=== PATIENT | male | born 1970 | race Caucasian/White ===

== ENCOUNTER 2018-11-12 10:39 | Outpatient (CLI) | payer MEDICAID, SELFPAY ==
[2018-11-12 12:55] LABS: Anion Gap 12.5 mmol/L (3-11); BUN 43 mg/dL (7-18); CO2 19.5 mmol/L (21.0-32.0); CREATININE 2.53 mg/dL (0.70-1.30); Chloride 105 mmol/L (98-107); Estimated GFR 27.44 (mL/min/1.73m2); Sodium 137 mmol/L (136-145); TSH 31.19 uIU/mL (0.358-3.74)
== END 2018-11-12 10:59 ==
PROVIDERS: PCP General Practice; Visit Provider General Practice
DX: I50.9 Heart failure, unspecified (principal); I10 Essential (primary) hypertension; E03.9 Hypothyroidism, unspecified
CPT/HCPCS: 36415; 80051; 84520; 82565; 84443

== ENCOUNTER 2019-05-04 12:20 | Outpatient (CLI) | payer MEDICAID, SELFPAY ==
[2019-05-04 12:57] LABS: Abs Immature Grans 0.07 k/cumm (0.0-0.09); Absolute Basophil Count 0.03 k/cumm (0.0-0.2); Absolute Eosinophil Count 0.41 k/cumm (0.0-0.7); Absolute Lymphocyte Count 1.96 k/cumm (1.2-3.4); Absolute Monocyte Count 0.34 k/cumm (0.11-0.7); Absolute Neutrophil Count 7.74 k/cumm (1.2-6.7); Basophils % 0.3; Eosinophils % 3.9; HCT 39.6 % (40.0-50.0); HGB 12.8 g/dL (13.5-17.5); Immature Grans % 0.7; Lymphocytes % 18.6; Mean Corp. HGB Concentration 32.3 g/dL (32.0-36.0); Mean Corpuscular Hemoglobin 28.1 pg (27.0-33.0); Mean Corpuscular Volume 86.8 fL (80-95); Mean Platelet Volume 9.1 fL (8.0-11.0); Monocytes % 3.2; Neutrophils % 73.3; Platelet Count 356 x1000/uL (130-400); RBC 4.56 m/cumm (4.50-6.00); RBC Distribution Width 14.9 % (11.8-14.1); White Blood Cell Count 10.55 k/cumm (4.4-10.8)
[2019-05-04 13:10] LABS: VALPROIC ACID < 3.0 ug/mL (50-100)
[2019-05-04 13:40] LABS: ALT 15 U/L (16-63); AST 8 U/L (15-37); Albumin 3.5 g/dL (3.4-5.0); Alkaline Phosphatase 72 U/L (46-116); Anion Gap 12.4 mmol/L (3-11); BUN 13 mg/dL (7-18); Bilirubin, Total 0.2 mg/dL (0.2-1.0); CO2 21.6 mmol/L (21.0-32.0); CREATININE 1.34 mg/dL (0.70-1.30); Calcium 8.9 mg/dL (8.5-10.1); Chloride 103 mmol/L (98-107); Estimated GFR 57.14 (mL/min/1.73m2); Glucose 106 mg/dL (70-100); Potassium 3.9 mmol/L (3.5-5.1); Sodium 137 mmol/L (136-145); Total Protein 7.8 g/dL (6.4-8.2)
== END 2019-05-04 12:40 ==
PROVIDERS: PCP General Practice; Visit Provider Nurse Practitioner Psychiatric/Mental Health
DX: F31.2 Bipolar disorder, current episode manic severe with psychotic features (principal); Z51.81 Encounter for therapeutic drug level monitoring; Z79.899 Other long term (current) drug therapy
CPT/HCPCS: 36415; 80053; 80164; 85025

== ENCOUNTER 2020-04-30 02:28 | Outpatient (CLI) | payer MEDICAID, SELFPAY ==
[2020-04-30 14:53] LABS: ALT 14 U/L (16-63); AST 11 U/L (15-37); Albumin 3.8 g/dL (3.4-5.0); Alkaline Phosphatase 65 U/L (46-116); Anion Gap 10.4 mmol/L (3-11); BUN 20 mg/dL (7-18); Bilirubin, Total 0.3 mg/dL (0.2-1.0); CO2 21.6 mmol/L (21.0-32.0); Calcium 9.4 mg/dL (8.5-10.1); Chloride 103 mmol/L (98-107); Cholesterol 352 mg/dL (<200); Glucose 118 mg/dL (74-106); HDL Cholesterol 25 mg/dL (40-60); Potassium 4.4 mmol/L (3.5-5.1); Sodium 135 mmol/L (136-145); Total Protein 8.1 g/dL (6.4-8.2); Triglyceride 771 mg/dL (<150)
[2020-04-30 15:04] LABS: LDL CHOLESTEROL 166 mg/dL (<100)
[2020-04-30 15:11] LABS: TSH (W/Ref FT4) 28.28 uIU/mL (0.36-3.74)
[2020-05-01 10:10] LABS: HIV-1/2 Ag & Ab Screen Negative (Negative)
[2020-05-01 10:25] LABS: HBs Antibody, Qual Negative (See Note); HBs Antibody, Quant <3.1 mIU/mL (See Note); Hepatitis B Core Antibody Negative (Negative); Hepatitis B surface Ag Negative (Negative); Hepatitis C Ab w Rflx HCV PCR Negative (Negative)
[2020-05-01 11:07] LABS: Syphilis Serology (RPR) Negative (Negative)
[2020-05-01 15:39] LABS: Chlamydia Result Negative (Negative); GC Result Negative (Negative)
== END 2020-04-30 02:48 ==
PROVIDERS: PCP Family Medicine; Visit Provider Family Medicine
DX: E03.9 Hypothyroidism, unspecified (principal); Z11.3 Encounter for screening for infections with a predominantly sexual mode of transmission; E78.5 Hyperlipidemia, unspecified; N18.4 Chronic kidney disease, stage 4 (severe)
CPT/HCPCS: 36415; 80053; 80061; 83721; 86704; 86706; 86803; 87340; 87389; 87491; 87591; 84439; 84443; 86592

== ENCOUNTER 2021-02-01 11:09 | Outpatient (REF) | payer MEDICAID, SELFPAY | END 2021-02-01 11:10 | disposition home or self-care (01) | LOC: LBN 11:09 | PROVIDERS: PCP Family Medicine; Visit Provider Family Medicine | DX: N39.0 Urinary tract infection, site not specified (principal) | CPT/HCPCS: 87086 ==

== ENCOUNTER 2021-08-08 12:45 | Outpatient (CLI) | payer MEDICAID, SELFPAY ==
--- NOTE | 2021-08-08 11:30 | DI.US_ITS ---
Exam(s) US RENAL EXAM: US RENAL CLINICAL HISTORY: elevated PVR ? hydro N40.1 PROSTATIC HYPERPLASIA R33.8 RETENTION OF URINE TECHNIQUE: Ultrasound of both kidneys performed using standard protocol. COMPARISON: US Cardiac from 02/08/2018 FINDINGS: RIGHT KIDNEY: Measures 13.3 cm in length. No cysts evident. Normal cortical thickness and corticomedullary differen tiation .No solid masses No intrarenal calculi nor hydronephrosis. LEFT KIDNEY: Measures 13.9 cm in length. There is a 0.4 x 2.2 cm cyst in the superior pole. Normal cortical thic kness and corticomedullary differentiaion. No solids masses. No intrarenal calculi. Very mild hydro nephrosis. URINARY BLADDER: Prevoid volume is 373 cc Postvoid volume is not recorded will. Patient was apparently not able to void. No evidence of bladder mass nor obvious diverticuli. Ureterovesical jets: Both not identified. IMPRESSION: 1. There appears to be an element of urinary retention as the patient was apparently not able to voi d. 2. Very mild dilatation left kidney collecting system. No obvious calculi evident. 2.4 cm benign-appearing cyst in the left kidney. No solid masses in either kidney. No intrarenal ca lculi detected. DATA REPOSITORY:
[2021-08-08 12:02] LABS: BUN 12 mg/dL (7-18)
[2021-08-08 12:08] LABS: VALPROIC ACID 86.6 ug/mL
[2021-08-08 12:28] LABS: ALT 19 U/L (16-63); AST 7 U/L (15-37); Albumin 3.3 g/dL (3.4-5.0); Alkaline Phosphatase 85 U/L (46-116); Anion Gap 11.4 mmol/L (3-11); BUN 12 mg/dL (7-18); Bilirubin, Total 0.2 mg/dL (0.2-1.0); CO2 24.6 mmol/L (21.0-32.0); Calcium 9.1 mg/dL (8.5-10.1); Calculated LDL 107 mg/dL (<100); Chloride 101 mmol/L (98-107); Cholesterol 189 mg/dL (<200); Glucose 152 mg/dL (74-106); HDL Cholesterol 33 mg/dL (40-60); Potassium 4.1 mmol/L (3.5-5.1); Sodium 137 mmol/L (136-145); TSH (W/Ref FT4) 5.04 uIU/mL (0.36-3.74); Total Protein 7.6 g/dL (6.4-8.2); Triglyceride 248 mg/dL (<150)
[2021-08-08 12:55] LABS: FREE T4 0.94 ng/dL (0.76-1.46)
[2021-08-08 18:40] LABS: PSA, Screening <0.1 ng/mL (0.0-2.5)
== END 2021-08-08 13:05 ==
PROVIDERS: PCP Family Medicine; Visit Provider Nurse Practitioner Gerontology
DX: N40.1 Benign prostatic hyperplasia with lower urinary tract symptoms (principal); R33.8 Other retention of urine; N28.1 Cyst of kidney, acquired
CPT/HCPCS: 76770; 80053; 80061; 84153; 84520; 80164; 82565; 84439; 84443

== ENCOUNTER 2022-04-10 06:58 | Day surgery (SDC) | payer MEDICAID, SELFPAY ==
--- NOTE | 2022-04-10 06:58 | ANES.PREOP_ITS ---
General Info Date of Service Date Performed: 04/10/22 Height: 5 ft 10 in Weight: 117.197 kg Body Mass Index (BMI): 37.0 Surgical Procedure: Operation Date: 04/10/22 08:35 Proposed Procedure Side Surgeon jayro Acevedo MD Meds Allergies and Home Medications Allergies Allergy/AdvReac Type Severity Reaction Status Date / Time No Known Allergies Allergy Verified 04/10/22 07:48 Home Medication Medication Instructions Recorded sumatriptan succinate 50 mg tablet See Rx Instructions PO .COMPLEX 11/06/20 #14 tabs diaper,brief,adult,disposable #10 ea 03/22/21 (Briefs, Adult-Extra Large) levothyroxine 200 mcg tablet 200 mcg PO DAILY@0730 #28 tabs 04/15/21 lisinopril 5 mg tablet 5 mg PO DAILY #28 tabs 04/15/21 bupropion HCl 300 mg 24 hr tablet, 300 mg PO QAM #60 tabs 09/02/21 extended release divalproex 500 mg tablet,extended 500 mg PO .COMPLEX #300 tabs 09/02/21 release 24 hr quetiapine 100 mg tablet (Seroquel) 100 mg PO HS #60 tabs 09/02/21 metoprolol succinate 50 mg 50 mg PO DAILY #90 tabs 09/03/21 tablet,extended release 24 hr sertraline 100 mg tablet 200 mg PO DAILY #90 tabs 12/27/21 atorvastatin 40 mg tablet 40 mg PO QHS #90 tabs 01/28/22 blood sugar diagnostic (Blood #100 ea 01/28/22 Glucose Test strips) blood-glucose meter #1 ea 01/28/22 lancets #100 ea 01/28/22 gemfibrozil 600 mg tablet (Lopid) 600 mg PO DAILY #30 tabs 02/24/22 bisacodyl 5 mg tablet,delayed 5 mg PO ONCE #4 tabs 03/13/22 release (Dulcolax (bisacodyl)) risperidone 1 mg tablet See Rx Instructions PO .COMPLEX 03/13/22 #150 tabs doxycycline hyclate 100 mg tablet 1 tab PO BID 04/10/22 prednisolone acetate 1 % eye 1 drp ophthalmic (eye) BID 04/10/22 drops,suspension Current Visit Medications: Current Medications Generic Name Dose Route Start Last Admin Trade Name Freq PRN Reason Stop Dose Admin Ringer's Solution 1,000 mls @ 80 mls/hr 04/10/22 06:00 IV 05/09/22 23:59 [facility] IV Miscellaneous Supplies 1 each 04/10/22 06:00 Iv Access IV 05/09/22 23:59 DIRECTED JUSTINE Sodium Chloride 0 ml 04/10/22 06:00 Normal Saline Flush 10 Ml Syr IV 05/09/22 23:59 PRN PRN Sodium Chloride 0 ml 04/10/22 06:00 Normal Saline 10 Ml Vial IJ 05/09/22 23:59 DIRECTED PRN Sterile Water 0 ml 04/10/22 06:00 Water,Injection,Sterile 10 Ml Vial IJ 05/09/22 23:59 DIRECTED PRN PFSH Active Problems Active Problems: Problem Status Onset Code Suicidal ideation R45.851 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, 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, I43 Obstructive sleep apnea ~04/2011 G47.33 Bipolar 1 disorder F31.9 Post traumatic stress disorder (PTSD) F43.10 CHF (congestive heart failure) I50.9 CKD (chronic kidney disease) N18.9 Diabetes mellitus, type II E11.9 Positive colorectal cancer screening using DNA-based stool test R19.5 Medical History Medical History Anemia Anxiety Basal cell carcinoma right upper medial cheek Cardiomyopathy Depression Discharge planning issues Folate deficiency Gout History of hand fracture right Hx of non-ST elevation myocardial infarction (NSTEMI) 11/2014 Hyperlipidemia Hypertension Hypertriglyceridemia Hypothyroidism Iron deficiency Migraine with aura Manuel syndrome Pt. denies Onychogryposis Osteomyelitis of toe amputated right 2nd toe thru pox phalanx 02/03/18 Urethral stricture Urinary incontinence Surgical History Surgical History Amputated toe of right foot (02/03/18) osteomyelitis, Dr. Pena S/P Mohs surgery for basal cell carcinoma (09/18/20) Two stages w/ full thickness Graft and Flap Tobacco Smoking/Tobacco Use Status: Never Smokeless tobacco user: chewing tobacco Alcohol Alcohol Intake: former Substance Use Substance use: Rarely Substance use type: marijuana Vital Signs and Lab Results Lab Results Blood Type / Crossmatch: No Data to Display Complete Blood Count: No Data to Display Complete Metabolic Panel: No Data to Display Liver Function Panel: No Data to Display Coagulation Panel: No Data to Display Cardiac Panel: No Data to Display Arterial Blood Gas: No Data to Display Venous Blood Gas: No Data to Display Pancreas Panel: No Data to Display Thyroid Panel: No Data to Display Infectious Disease: No Data to Display Blood Cultures: No Data to Display Toxicology Panel: No Data to Display Anesthesia Assessment and Plan Anesthesia History Personal History: No History of Anesthesia Complications Family History: No Family History of Anesthesia Complications Exercise Tolerance Exercise Tolerance: Metabolic Equivalents>4 Pertinent Negatives Pertinent Negatives: No Symptoms of GERD, No Major Pulmonary Symptoms or Complaints and No History of CVA/TIA Cardiac & Pulmonary Exam Cardiac Exam: Normal S1/S2 Heart Sounds Pulmonary Exam: Clear Bilateral Breath Sounds Implantable Cardiac Device Does patient have a Pacemaker or an ICD?: No Airway Exam Known Difficult Airway: No Mallampati Class: 3 Mouth Opening: Normal (> 3cm) Thyromental Distance: Greater than 3 cm Neck Range of Motion: Limited ROM Neck Circumference: Thick (Midline goiter. easily palpable, mobile. ) Teeth Condition: Generalized Poor Dentition and Loose or Chipped ASA Classification ASA Score: ASA 3 Emergency Case?: No NPO Status NPO Status: NPO Clears >2 hours, Solids >8 hours Anesthesia Plan Resuscitation Status: Full Code Anesthesia Technique: General Anesthesia Airway Planned: Natural Airway Monitors Used: Standard Monitors Preoperative Comments:: Cardiomyopathy likely induced due to severe hypothyroidism per Dr. Chandra note. Most recent TSH/T4 normal high. Lowest EF 27% most recent 45%. Recent DM diagnosis, HGA1c 6.1. Significantly sized goiter midline in airway. OR 1 available we will be proceeding there.
[2022-04-10 07:42] VITALS: BP 140/102; PULSE 78; RESP 16; TEMP 36.6; O2SAT 94
[2022-04-10] MEDS: Lactated Ringers 1,000 ML 80 ML IV (08:00)
--- NOTE | 2022-04-10 08:31 | W.PM.DSUDISC ---
Discharge Plan Disposition Patient Disposition: HOME Condition: Good Discharge Details Reason For Visit: diagnostic colonoscopy Attending Provider: Ross Acevedo Primary Care Provider: Gordon Landis Home Meds and New Rx's Prescriptions: Continued sumatriptan succinate 50 mg tablet See Rx Instructions PO .COMPLEX Qty: 14 6RF Rx Instructions: take 1 tab at onset of headache; if no relief may repeat 1 tab after at least 2 hrs; max = 4 tabs/24 hr PO (DME) blood-glucose meter Misc See Rx Instructions .ROUTE .MEDSUPPLY Qty: 1 0RF Rx Instructions: As directed to check blood glucose. No insulin. Dispense covered brand. (DME) Blood Glucose Test Strip See Rx Instructions .ROUTE .MEDSUPPLY Qty: 100 3RF Rx Instructions: As directed to check blood glucose daily. No insulin. Dispense covered brand. (DME) lancets Misc See Rx Instructions .ROUTE .MEDSUPPLY Qty: 100 3RF Rx Instructions: As directed to check blood glucose daily. No insulin. Dispense covered brand. atorvastatin 40 mg tablet 40 mg PO QHS Qty: 90 3RF flu vacc [id number] 6mos up(PF) 60 mcg (15 mcg x 4)/0.5 mL syringe 0.5 ml IM ONCE Qty: 0.5 0RF bisacodyl [Dulcolax (bisacodyl)] 5 mg tablet,delayed release (DR/EC) 5 mg PO ONCE Qty: 4 0RF Rx Instructions: Take according to provider's instructions for colonoscopy prep. (DME) Briefs, Adult-Extra Large Misc See Rx Instructions .ROUTE .MEDSUPPLY Qty: 10 Rx Instructions: size 3X night time use levothyroxine 200 mcg tablet 200 mcg PO DAILY@0730 Qty: 28 12RF lisinopril 5 mg tablet 5 mg PO DAILY Qty: 28 12RF bupropion HCl 300 mg tablet extended release 24 hr 300 mg PO QAM Qty: 60 3RF Rx Instructions: per rx label [facility] 10/24/19 [facility] divalproex 500 mg tablet extended release 24 hr 500 mg PO .COMPLEX Qty: 300 3RF Rx Instructions: 2 (1000mg) tablets in the morning and 3 (1500mg) tablets at bedtime. quetiapine [Seroquel] 100 mg tablet 100 mg PO HS Qty: 60 3RF metoprolol succinate 50 mg tablet extended release 24 hr 50 mg PO DAILY Qty: 90 3RF sertraline 100 mg tablet 200 mg PO DAILY Qty: 90 3RF Rx Instructions: 10/24/19 [facility] [place] gemfibrozil [Lopid] 600 mg tablet 600 mg PO DAILY Qty: 30 11RF risperidone 1 mg tablet See Rx Instructions PO .COMPLEX Qty: 150 3RF Rx Instructions: 1/2 tab (0.5 mg) am and 2 tab (2 mg ) pm PO 10/24/19 [facility] prednisolone acetate 1 % drops,suspension 1 drp ophthalmic (eye) BID Label Comments: Instill 1 drop into both eyes twice a day doxycycline hyclate 100 mg tablet 1 tab PO BID Label Comments: Take 1 tablet by mouth twice a day Discontinued polyethylene glycol 3350 17 gram/dose powder 17 g PO ONCE Qty: 238 0RF Rx Instructions: To be taken as directed by prescriber's office for colonoscopy prep. Discharge Instructions Instructions: Colorectal Polyps (DC), Colonoscopy (DC) Additional Instructions: 1. If tolerated, consume a soft, low fiber diet for 1-2 days. [address] Do not drive, drink alcohol, operate machinery, make critical decisions, or do activities that require coordination or balance for 24 hours. 3. Because air was put into your colon during the procedure, expelling air from your rectum (passing gas or farting) is normal. 4. You may not have a bowel movement for 1-3 days because of the colonoscopy prep. This is normal. 5. Go directly to the emergency room if you notice any of the following: Develop chills (warm to touch), or if you have a thermometer and your temperature is above 101 Difficulty breathing or difficultly swallowing Persistent vomiting Severe abdominal pain, other than gas cramps Severe chest pain Black, tarry stools Any bleeding ? exceeding one tablespoon 6. Call your physician if the site where your intravenous was started becomes red, swollen, painful, and warm to touch. 7. Your physician has reviewed your pre-procedure medications. Please continue to take those medications as previously ordered. You will be given specific information/education regarding any changes to your medications before leaving. Referrals: Gordon Landis DO [Primary Care Provider] - (colonoscopy follow up) Activity:: Activity as Tolerated Diet:: As Tolerated Discharge Orders Discharge Orders: Discharge Order (Routine); Ordered 04/10/22 Ordered By: Ross Acevedo Discharge Data Discharge Comment: follow up with primary care DS: Diagnosis Discharge Diagnosis (1) Colon polyp: Status: Acute Asessment and Plan: My office will notify you of the biopsy results
--- NOTE | 2022-04-10 08:33 | W.PM.HP.N ---
Date of service: 04/10/22 Time of Service: 08:33 Assessment and Plan Assessment and plan (1) Positive colorectal cancer screening using DNA-based stool test: Status: Acute Assessment and plan: He has slight increased risk regarding sedation from procedure. I was present with anesthesia services, and we discussed the progress with the patient. Specifically, we explained the increased possibility of requiring endotracheal intubation, and potential complications that may arise secondary to any thyroid goiter. He understands the risks, and wishes to proceed with colonoscopy History of Present Illness Narrative: History of present illness is up-to-date with last evaluation by Ashia Ortiz. In addition to those findings, and worth mentioning today, there is a thyroid goiter. Patient reports that has been there for several years. Is not tender. He denies any hoarseness, dysphagia, stridor, or other forms of difficulty breathing. He does report that he sleeps on his side at nighttime. PFSH All Active Problems 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) Obstructive sleep apnea (Chronic ~04/2011) unable to tolerate CPAP Bipolar 1 disorder (Chronic) Post traumatic stress disorder (PTSD) (Chronic) CHF (congestive heart failure) (Chronic) CKD (chronic kidney disease) (Acute) Diabetes mellitus, type II (Chronic) Fasting BS in the 150s, 2020- Positive colorectal cancer screening using DNA-based stool test (Acute) Medical History Anemia Anxiety Basal cell carcinoma right upper medial cheek Cardiomyopathy Depression Discharge planning issues Folate deficiency Gout History of hand fracture right Hx of non-ST elevation myocardial infarction (NSTEMI) 11/2014 Hyperlipidemia Hypertension Hypertriglyceridemia Hypothyroidism Iron deficiency Migraine with aura Manuel syndrome Pt. denies Onychogryposis Osteomyelitis of toe amputated right 2nd toe thru pox phalanx 02/03/18 Urethral stricture Urinary incontinence Surgical History Amputated toe of right foot (02/03/18) osteomyelitis, Dr. Pena S/P Mohs surgery for basal cell carcinoma (09/18/20) Two stages w/ full thickness Graft and Flap Social History Smoking/Tobacco Use Status: Never Smokeless tobacco user: chewing tobacco Smoking risk assessment performed?: Yes Alcohol Intake: former Drug use: Rarely Substance use type: marijuana Adopted: No Caregiver/Support person: No Foster care: No Household members: other Details: 2 roomates Housing: apartment Number of Children: 0 Communication Needs: None Do you need help understanding health information?: Often current occupation: disability Sexually active: No Do you think of yourself as: straight/heterosexual Current gender identity: male How often do you talk on the phone with friends or family?: three or more times per week How often do you get together with friends or relatives?: three or more times per week Panel score (0-1 are the most socially isolated patients): 1 What type of physical activity do you participate in: walking Duration: 15-30 minutes/day Frequency: daily Seatbelt use: always Drive 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 Working smoke detector in home: Yes Fire extinguisher in home: Yes Carbon monox detector in home: Yes Do you feel safe at home: Yes Do you feel safe in your relationship?: Yes Meds Allergies and Home Medications Allergies Allergy/AdvReac Type Severity Reaction Status Date / Time No Known Allergies Allergy Verified 04/10/22 07:48 Home Medications Medication Instructions Recorded Confirmed Type sumatriptan succinate 50 mg tablet See Rx Instructions PO .COMPLEX 11/06/20 04/08/22 Rx #14 tabs diaper,brief,adult,disposable #10 ea 03/22/21 04/08/22 History (Briefs, Adult-Extra Large) levothyroxine 200 mcg tablet 200 mcg PO DAILY@0730 #28 tabs 04/15/21 04/10/22 Rx lisinopril 5 mg tablet 5 mg PO DAILY #28 tabs 04/15/21 04/10/22 Rx flu vacc [id number] 6mos up(PF) 60 0.5 ml IM ONCE #0.5 mL 05/28/21 04/08/22 Clinic mcg(15 mcgx4)/0.5 mL IM syringe bupropion HCl 300 mg 24 hr tablet, 300 mg PO QAM #60 tabs 09/02/21 04/10/22 Rx extended release divalproex 500 mg tablet,extended 500 mg PO .COMPLEX #300 tabs 09/02/21 04/10/22 Rx release 24 hr quetiapine 100 mg tablet (Seroquel) 100 mg PO HS #60 tabs 09/02/21 04/10/22 Rx metoprolol succinate 50 mg 50 mg PO DAILY #90 tabs 09/03/21 04/10/22 Rx tablet,extended release 24 hr sertraline 100 mg tablet 200 mg PO DAILY #90 tabs 12/27/21 04/10/22 Rx atorvastatin 40 mg tablet 40 mg PO QHS #90 tabs 01/28/22 04/10/22 Rx blood sugar diagnostic (Blood #100 ea 01/28/22 04/08/22 Rx Glucose Test strips) blood-glucose meter #1 ea 01/28/22 04/08/22 Rx lancets #100 ea 01/28/22 04/08/22 Rx gemfibrozil 600 mg tablet (Lopid) 600 mg PO DAILY #30 tabs 02/24/22 04/10/22 Rx bisacodyl 5 mg tablet,delayed 5 mg PO ONCE #4 tabs 03/13/22 04/10/22 Rx release (Dulcolax (bisacodyl)) risperidone 1 mg tablet See Rx Instructions PO .COMPLEX 03/13/22 04/10/22 Rx #150 tabs doxycycline hyclate 100 mg tablet 1 tab PO BID 04/10/22 04/10/22 History prednisolone acetate 1 % eye 1 drp ophthalmic (eye) BID 04/10/22 04/10/22 History drops,suspension Exam Neck Thyroid: diffusely enlarged, firm, nontender and other (Relatively mobile) Results Last Vital Signs Temp 97.9 F 04/10/22 07:42 Pulse 78 04/10/22 07:42 Resp 16 04/10/22 07:42 BP 140/102 H 04/10/22 07:42 Pulse Ox 94 04/10/22 07:42
[2022-04-10 08:48] VITALS: BMI 37.0
--- NOTE | 2022-04-10 09:05 | BOWEL_PTH ---
PATIENT: Nasir Cheek LOC: [facility] U#:[id number] AGE/SX: 51/M ROOM: RE04/10/[address]: Ross Acevedo MD : 1970 BED: DIS: 04/10/2022 SPEC #: [id number] RECD: 04/10/22 10:36 STATUS: [place] REQ #: [id number] MAULIK: 04/10/22 09:[address]: Ross Acevedo DEPT: Surgical Specimen RECD BY: Raina Reynolds ENTERED: 04/10/22 10:40 SP TYPE: Bowel OTHR DR: Gordon Landis DO Tissues: 1 - BIOPSY BOWEL Procedures: GROSS AND MICRO LEVEL 4 Comments: [id number]
--- NOTE | 2022-04-10 09:33 | W.COLOREPORT ---
Colonoscopy Report Date of procedure: 04/10/22 Pre-op diagnosis general: positive cologuard screening Post-op diagnosis procedure note: other (colon polyp) Procedure: Diagnostic colonoscopy with polypectomy Surgeon: Ross Acevedo Anesthesia Type: General:No Airway Estimated blood loss (mL): 15 Pathology: other (ascending colon polyp) Complications: None Disposition: same day Indications: positive cologuard sceeening Prep: Miralax/Dulcolax Procedure Start Time: 08:41 Procedure End Time: 09:20 Retraction Time: 27 Findings: ascending colon polyp Procedure Description: After the induction of monitored anesthetic care, and with the patient in left lateral decubitus position, I began by performing an external anorectal exam.? Perineum and skin were normal, as was the anal verge.? There was no evidence of external hemorrhoids.? Next, I performed a digital rectal exam.? I did not appreciate any abnormal findings.? Next, I advanced a colonoscope into the rectal vault.? I performed retroflexion.? I did not see signs of pathologic internal hemorrhoids.? Using insufflation, I then advanced the colonoscope beyond the rectal folds and into the sigmoid colon before advancing towards the cecum.? The quality of the prep was good.? The scope was noted to be in the cecum by identification of the ileocecal valve and appendiceal orifice.? I then began withdrawing the colonoscope using repeated irrigation as necessary for full evaluation of the colonic mucosa. ?Around the hepatic flexure from the anal verge I identified a large polyp. ?It appeared pedunculated in character and approximatly 3 cm in the greatest dimension. ?I was able to remove this with an energized snare. ?I did use a submucoasal tattoo. I examined the site, and there was minimal bleeding. ?Once this was completed, I continued to withdraw the scope and examine the remainder of the colonic mucosa. There were some sigmoid diverticula. Once the scope was withdrawn to the level of the rectum, great care was taken to examine portions of the rectal folds.? Finally, the scope was withdrawn and the patient was brought to the same-day surgery recovery unit as the anesthetic wore off. ?The findings and instructions were shared with the patient prior to discharge.
[2022-04-10 09:35] VITALS: BP 125/100; PULSE 75; RESP 14; TEMP 36.1; O2SAT 97
[2022-04-10 10:03] VITALS: BP 135/108; PULSE 71; RESP 15; TEMP 36.1; O2SAT 94
--- NOTE | 2022-04-10 15:43 | W.ANESPOSTOP ---
Postoperative Evaluation Date, Time and Location Date Performed: 04/10/22 Time Performed: 15:43 Patient Location: Day Surgery Unit Vital Signs Most Recent Imported Vital Signs: Most Recent Vital Signs Temp Pulse Resp BP Pulse Ox 36.1 C L 71 15 135/108 H 94 04/10/22 10:03 04/10/22 10:03 04/10/22 10:03 04/10/22 10:03 04/10/22 10:03 Pain Score Most Recent Pain Score: Most Recent Pain Score Pain Level 0 04/10/22 10:03 Assessment Mental Status: Awake (Alert & Oriented to Patient Baseline) Airway and Respiratory Function: Patent airway with normal (patient baseline) respiratory exam Cardiovascular Function: Hemodynamically Stable Hydration Status: Adequately Hydrated Nausea & Vomiting: No Nausea or Vomiting Pain: Pt. Denies Any Pain Peripheral Nerve Block: Patient did not receive a nerve block
== END 2022-04-10 06:59 | disposition home or self-care (01) ==
PROVIDERS: PCP Family Medicine; Visit Provider Surgery
PROC: 0DJD8ZZ Inspection of Lower Intestinal Tract, Via Natural or Artificial Opening Endoscopic (ICD-10-PCS; CPT 45378; principal; 2022-04-10 08:30)
DX: R19.5 Other fecal abnormalities (principal); K63.5 Polyp of colon; E11.22 Type 2 diabetes mellitus with diabetic chronic kidney disease; N18.9 Chronic kidney disease, unspecified; G47.33 Obstructive sleep apnea (adult) (pediatric)
CPT/HCPCS: 45385; 45381; 88305

== ENCOUNTER 2022-10-02 10:06 | Emergency (ER) | payer MEDICAID, SELFPAY ==
[2022-10-02 10:09] VITALS: BP 148/110; PULSE 124; RESP 18; TEMP 36.7; O2SAT 98
--- NOTE | 2022-10-02 10:45 | W.ED.GENAD ---
Discharge Plan Disposition Patient Disposition: Home Condition: Stable Discharge Details Clinical Impression: Arm pain, left Primary Care Provider: Gordon Landis ED Provider: Tyrell Peres Home Meds and New Rx's Prescriptions: Continued sumatriptan succinate 50 mg tablet See Rx Instructions PO .COMPLEX Qty: 14 6RF Rx Instructions: take 1 tab at onset of headache; if no relief may repeat 1 tab after at least 2 hrs; max = 4 tabs/24 hr PO atorvastatin 40 mg tablet 40 mg PO QHS Qty: 90 3RF flu vacc [id number] 6mos up(PF) 60 mcg (15 mcg x 4)/0.5 mL syringe 0.5 ml IM ONCE Qty: 0.5 0RF (DME) blood-glucose meter Misc See Rx Instructions .ROUTE .MEDSUPPLY Qty: 1 0RF Rx Instructions: As directed to check blood glucose. No insulin. Dispense covered brand. (DME) Blood Glucose Test Strip See Rx Instructions .ROUTE .MEDSUPPLY Qty: 100 3RF Rx Instructions: As directed to check blood glucose daily. No insulin. Dispense covered brand. (DME) lancets Misc See Rx Instructions .ROUTE .MEDSUPPLY Qty: 100 3RF Rx Instructions: As directed to check blood glucose daily. No insulin. Dispense covered brand. bisacodyl [Dulcolax (bisacodyl)] 5 mg tablet,delayed release (DR/EC) 5 mg PO ONCE Qty: 4 0RF Rx Instructions: Take according to provider's instructions for colonoscopy prep. (DME) Briefs, Adult-Extra Large Misc See Rx Instructions .ROUTE .MEDSUPPLY Qty: 10 Rx Instructions: size 3X night time use gemfibrozil [Lopid] 600 mg tablet 600 mg PO DAILY Qty: 30 11RF risperidone 1 mg tablet See Rx Instructions PO .COMPLEX Qty: 150 3RF Rx Instructions: 1/2 tab (0.5 mg) am and 2 tab (2 mg ) pm PO 10/24/19 [facility] lisinopril 5 mg tablet 5 mg PO DAILY Qty: 28 12RF levothyroxine 200 mcg tablet 200 mcg PO DAILY@0730 Qty: 28 12RF bupropion HCl 300 mg tablet extended release 24 hr 300 mg PO QAM Qty: 60 3RF Rx Instructions: per rx label [facility] 10/24/19 [facility] divalproex 500 mg tablet extended release 24 hr 500 mg PO .COMPLEX Qty: 300 3RF Rx Instructions: 2 (1000mg) tablets in the morning and 3 (1500mg) tablets at bedtime. quetiapine [Seroquel] 100 mg tablet 100 mg PO HS Qty: 60 3RF sertraline 100 mg tablet 200 mg PO DAILY Qty: 90 3RF Rx Instructions: 10/24/19 [facility] [place] metoprolol succinate 50 mg tablet extended release 24 hr 50 mg PO DAILY Qty: 90 3RF prednisolone acetate 1 % drops,suspension 1 drp ophthalmic (eye) BID Label Comments: Instill 1 drop into both eyes twice a day doxycycline hyclate 100 mg tablet 1 tab PO BID Label Comments: Take 1 tablet by mouth twice a day No Action hydrocodone-acetaminophen 5-325 mg tablet 1 tab PO 1XD Discharge Instructions Additional Instructions: Examination is concerning for a left bicep injury. Wear sling as needed, advance activity as tolerated. Be sure to do passive range of motion at least 4 times daily to avoid a frozen shoulder. [id number] Tylenol and Motrin as directed for discomfort. Cool and/or warm compresses every 2 hours for 20 minutes. Please watch for new or worsening symptoms and return to the ER for any concerns. Lastly, please contact the orthopedic office to discuss your ER visit and need for outpatient reevaluation. Referrals: Dustin Alcantar MD [ [facility] STAFF PHYSICIAN] - Discharge Data Discharge Date/Time-TO BE ENTERED AT DEPARTURE: 10/02/22 11:13 Medical Decision Making <JUAN C Sanchez - Last Filed: 10/02/22 11:15> 51-year-old gentleman, [id number], presents to the ER complaining of left bicep pain that he sustained late last night early this morning while reaching for his telephone. He presents slightly anxious, tachycardia, hypertensive. Patient reports his pain is moderate to severe. Denies any chest pain, shortness of breath, radiation of this pain. Took Motrin with some relief. Given his overall presentation, I did request that Dr. Patricia evaluate the patient. Please see his note. Blood pressure and heart rate trending down nicely without intervention. Patient declines acetaminophen. No clear indication to obtain x-ray. Plan to provide sling and refer to orthopedics. Patient does have a PCP and reports that he is aware of his goiter, this has been evaluated as an outpatient. Standard discharge and return precautions were provided. Patient understands, is agreeable to this plan, and has no additional questions or concerns upon discharge. This documentation was generated using [employer] system, please disregard any oddities of phrase or misspellings. Medical Records Medical records reviewed: Yes I reviewed the patient's medical records. <Julio C Patricia MD - Last Filed: 10/09/22 14:32> Date: 10/02/22 Time: 10:50 Note: Patient seen, examined, and discussed with JUAN C Peres. I agree with treatment plan as discussed/documented. HPI <JUAN C Sanchez - Last Filed: 10/02/22 11:15> General Mode of arrival: ambulatory. Date/Time Provider Initiated Documentation: 10/02/22 10:12. Limitations to Documentation: no limitations. Information obtained by: patient. HPI Narrative: This is a 51-year-old gentleman, past medical history of diabetes, anemia, anxiety, cardiomyopathy, depression, hyperlipidemia, hypertension, hypothyroidism, bipolar, [id number], presents complaining of left bicep injury. Patient states that late last night, early this morning he was reaching for his phone, did not turn his body, and in the process felt his left bicep spasm, he instantly straighten his arm out completely but he reports continuation of an aching 5-10 pain. He denies any other injury or trauma, fever, neck pain, chest pain, shortness of breath, numbness, tingling, weakness, joint pain. Patient states that he has taken [id number] ibuprofen with minimal relief. Related Data Home Medications Medication Instructions Recorded Confirmed sumatriptan succinate 50 mg tablet See Rx Instructions PO .COMPLEX 11/06/20 04/08/22 #14 tabs diaper,brief,adult,disposable #10 ea 03/22/21 04/08/22 (Briefs, Adult-Extra Large) atorvastatin 40 mg tablet 40 mg PO QHS #90 tabs 01/28/22 10/02/22 gemfibrozil 600 mg tablet (Lopid) 600 mg PO DAILY #30 tabs 02/24/22 10/02/22 bisacodyl 5 mg tablet,delayed 5 mg PO ONCE #4 tabs 03/13/22 04/10/22 release (Dulcolax (bisacodyl)) risperidone 1 mg tablet See Rx Instructions PO .COMPLEX 03/13/22 10/02/22 #150 tabs doxycycline hyclate 100 mg tablet 1 tab PO BID 04/10/22 10/02/22 prednisolone acetate 1 % eye 1 drp ophthalmic (eye) BID 04/10/22 04/10/22 drops,suspension levothyroxine 200 mcg tablet 200 mcg PO DAILY@0730 #28 tabs 04/15/22 10/02/22 lisinopril 5 mg tablet 5 mg PO DAILY #28 tabs 04/15/22 10/02/22 bupropion HCl 300 mg 24 hr tablet, 300 mg PO QAM #60 tabs 04/17/22 10/02/22 extended release divalproex 500 mg tablet,extended 500 mg PO .COMPLEX #300 tabs 04/17/22 10/02/22 release 24 hr quetiapine 100 mg tablet (Seroquel) 100 mg PO HS #60 tabs 04/17/22 10/02/22 blood sugar diagnostic (Blood #100 ea 05/22/22 05/22/22 Glucose Test strips) blood-glucose meter #1 ea 05/22/22 05/22/22 lancets #100 ea 05/22/22 05/22/22 sertraline 100 mg tablet 200 mg PO DAILY #90 tabs 06/03/22 10/02/22 metoprolol succinate 50 mg 50 mg PO DAILY #90 tabs 07/03/22 10/02/22 tablet,extended release 24 hr hydrocodone 5 mg-acetaminophen 325 1 tab PO 1XD 10/02/22 10/02/22 mg tablet Previous Rx's Medication Instructions Recorded sumatriptan succinate 50 mg tablet See Rx Instructions PO .COMPLEX 11/06/20 #14 tabs atorvastatin 40 mg tablet 40 mg PO QHS #90 tabs 01/28/22 gemfibrozil 600 mg tablet (Lopid) 600 mg PO DAILY #30 tabs 02/24/22 bisacodyl 5 mg tablet,delayed 5 mg PO ONCE #4 tabs 03/13/22 release (Dulcolax (bisacodyl)) risperidone 1 mg tablet See Rx Instructions PO .COMPLEX 07/07/22 #150 tabs levothyroxine 200 mcg tablet 200 mcg PO DAILY@0730 #28 tabs 04/15/22 lisinopril 5 mg tablet 5 mg PO DAILY #28 tabs 04/15/22 bupropion HCl 300 mg 24 hr tablet, 300 mg PO QAM #60 tabs 04/17/22 extended release divalproex 500 mg tablet,extended 500 mg PO .COMPLEX #300 tabs 04/17/22 release 24 hr quetiapine 100 mg tablet (Seroquel) 100 mg PO HS #60 tabs 04/17/22 blood sugar diagnostic (Blood #100 ea 05/22/22 Glucose Test strips) blood-glucose meter #1 ea 05/22/22 lancets #100 ea 05/22/22 sertraline 100 mg tablet 200 mg PO DAILY #90 tabs 06/03/22 metoprolol succinate 50 mg 50 mg PO DAILY #90 tabs 07/03/22 tablet,extended release 24 hr Allergies Allergy/AdvReac Type Severity Reaction Status Date / Time No Known Allergies Allergy Verified 10/02/22 11:05 General Stated Complaint: GenMedical SHANIKA: 3 Review of Systems <JUAN C Sanchez - Last Filed: 10/02/22 11:15> Constitutional Constitutional: Denies fever(s), Denies headache(s) and Denies weakness ENT Ears, Nose, Mouth, and Throat: Denies headache(s) and Denies neck pain Cardiovascular Cardiovascular: Denies chest pain and Denies dyspnea Respiratory Respiratory: Denies dyspnea Gastrointestinal Gastrointestinal: Denies abdominal pain, Denies nausea and Denies vomiting Musculoskeletal Musculoskeletal: Denies neck pain, Denies numbness and Denies tingling Integumentary/Breasts Skin/Breast: Denies erythema Neurologic Neurologic: Denies headache(s), Denies numbness, Denies tingling and Denies weakness PFSH <JUAN C Sanchez - Last Filed: 10/02/22 11:15> All Active Problems Arm pain, left (Acute) Plaque psoriasis (Acute) Tubulovillous adenoma of colon (Acute) Colon polyp (Acute) 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) Obstructive sleep apnea (Chronic ~04/2011) unable to tolerate CPAP Bipolar 1 disorder (Chronic) Post traumatic stress disorder (PTSD) (Chronic) CHF (congestive heart failure) (Chronic) CKD (chronic kidney disease) (Acute) Diabetes mellitus, type II (Chronic) Fasting BS in the 150s, 2020- Positive colorectal cancer screening using DNA-based stool test (Acute) Medical History Anemia Anxiety Basal cell carcinoma right upper medial cheek Cardiomyopathy Depression Discharge planning issues Folate deficiency Gout History of hand fracture right Hx of non-ST elevation myocardial infarction (NSTEMI) 11/2014 Hyperlipidemia Hypertension Hypertriglyceridemia Hypothyroidism Iron deficiency Migraine with aura Manuel syndrome Pt. denies Onychogryposis Osteomyelitis of toe amputated right 2nd toe thru pox phalanx 02/03/18 Urethral stricture Urinary incontinence Surgical History Amputated toe of right foot (02/03/18) osteomyelitis, Dr. Pena History of colonoscopy (~04/2022) S/P Mohs surgery for basal cell carcinoma (09/18/20) Two stages w/ full thickness Graft and Flap Social History Smoking/Tobacco Use Status: Never Smokeless tobacco user: chewing tobacco Smoking risk assessment performed?: Yes Alcohol Intake: former Drug use: Rarely Substance use type: marijuana Adopted: No Caregiver/Support person: No Foster care: No Household members: other Details: 2 roomates Housing: apartment Number of Children: 0 Communication Needs: None Do you need help understanding health information?: Often current occupation: disability Sexually active: No Do you think of yourself as: straight/heterosexual Current gender identity: male How often do you talk on the phone with friends or family?: three or more times per week How often do you get together with friends or relatives?: three or more times per week Panel score (0-1 are the most socially isolated patients): 1 What type of physical activity do you participate in: walking Duration: 15-30 minutes/day Frequency: daily Seatbelt use: always Drive 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 Working smoke detector in home: Yes Fire extinguisher in home: Yes Carbon monox detector in home: Yes Do you feel safe at home: Yes Do you feel safe in your relationship?: Yes Exam <JUAN C Sanchez - Last Filed: 10/02/22 11:15> Const General: cooperative, comfortable, no acute distress and anxious (Slightly) Orientation: alert and awake [facility] Head: normal to inspection, normocephalic and atraumatic Eyes Conjunctivae: conjunctivae normal Neck Neck: full ROM, no meningeal signs, trachea midline, supple and other (Goiter present) Resp Effort & Inspection: normal respiratory effort and able to speak in complete sentences Auscultation: clear to auscultation bilaterally Cardio Rate: tachycardic (106) Rhythm: regular rhythm GI Inspection: obesity Skin General skin exam: no rashes or lesions noted Neuro General: patient alert, patient awake, moves all extremities and no focal motor deficits Cognition: normal cognition Speech: speech normal Gait: normal gait Motor: muscle tone normal throughout Sensory Exam: no sensory deficits noted Extrem General: normal to inspection, full ROM and capillary refill normal Shoulder/upper arm images: 1. Diffuse soft tissue discomfort. There is no obvious deformity. Without erythema, warmth, induration or fluctuance. Skin is intact. Neuro, vascular, tendon intact. Normal capillary refill. Bilateral normal radial pulses. Psych Appearance: grossly normal Mental Status: mental status grossly normal Course <JUAN C Sanchez - Last Filed: 10/02/22 11:15> Vital Signs Vital signs: Vital Signs Temperature 36.7 C 10/02/22 10:09 Pulse 124 H 10/02/22 10:09 Respiratory Rate 18 10/02/22 10:09 Blood Pressure 148/110 H 10/02/22 10:09 Pulse Oximetry 98 10/02/22 10:09 Temperature 36.7 C 10/02/22 10:09 Temperature Source Tympanic 10/02/22 10:09 Pulse 124 H 10/02/22 10:09 Respiratory Rate 18 10/02/22 10:09 Respiratory Effort 10/02/22 10:15 Blood Pressure 148/110 H 10/02/22 10:09 Blood Pressure Position Supine 10/02/22 10:09 Pulse Oximetry 98 10/02/22 10:09 Oxygen Delivery Method Room Air 10/02/22 10:09 Oxygen Flow Rate 0 10/02/22 10:09 Pain Level 10 10/02/22 10:09
[2022-10-02 11:03] VITALS: BP 119/95; PULSE 96; RESP 20; TEMP 36.6; O2SAT 96
[2022-10-02 11:14] VITALS: RESP 15
== END 2022-10-02 11:13 | disposition home or self-care (01) ==
PROVIDERS: Emergency Provider Physician Assistant; PCP Family Medicine
DX: M79.622 Pain in left upper arm (principal); X50.9XXA Other and unspecified overexertion or strenuous movements or postures, initial encounter
CPT/HCPCS: 99282; 99283

== ENCOUNTER 2023-11-30 05:16 | Outpatient (CLI) | payer MEDICAID, SELFPAY ==
[2023-11-30 11:37] LABS: ALT 21 U/L (16-63); AST 14 U/L (15-37); Albumin 3.9 g/dL (3.4-5.0); Alkaline Phosphatase 58 U/L (46-116); Anion Gap 11.8 mmol/L (3-11); BUN 36 mg/dL (7-18); Bilirubin, Total 0.2 mg/dL (0.2-1.0); CO2 24.2 mmol/L (21.0-32.0); CREATININE 1.3 mg/dL (0.70-1.30); Calculated LDL 111 mg/dL (<100); Chloride 102 mmol/L (98-107); Cholesterol 197 mg/dL (<200); Glucose 125 mg/dL (74-106); HDL Cholesterol 37 mg/dL (40-60); Potassium 4.6 mmol/L (3.5-5.1); Sodium 138 mmol/L (136-145); TSH (W/Ref FT4) 41.17 uIU/mL (0.36-3.74); Total Protein 7.9 g/dL (6.4-8.2); Triglyceride 248 mg/dL (<150)
[2023-11-30 13:48] LABS: FREE T4 0.56 ng/dL (0.76-1.46)
== END 2023-11-30 05:17 | disposition home or self-care (01) ==
LOC: LBO 05:16
PROVIDERS: PCP Family Medicine; Referring Provider Family Medicine; Visit Provider Family Medicine
DX: E11.9 Type 2 diabetes mellitus without complications (principal)
CPT/HCPCS: 36415; 80053; 80061; 84439; 84443

== ENCOUNTER 2025-03-26 13:39 | Emergency (ER) | payer MEDICAID, SELFPAY ==
[2025-03-26 13:41] VITALS: BP 154/102; PULSE 103; RESP 16; TEMP 36.5; O2SAT 95
--- NOTE | 2025-03-26 15:57 | W.ED.GENAD ---
Discharge Plan Disposition Patient Disposition: Home Condition: Stable Discharge Details Clinical Impression: Facial injury, Eyebrow laceration Primary Care Provider: Gordon Landis ED Provider: Roseanne Murguia Home Meds and New Rx's Prescriptions: Continued sumatriptan succinate 50 mg tablet See Rx Instructions PO .COMPLEX Qty: 14 6RF Rx Instructions: take 1 tab at onset of headache; if no relief may repeat 1 tab after at least 2 hrs; max = 4 tabs/24 hr PO flu vacc [id number] 6mos up(PF) 60 mcg (15 mcg x 4)/0.5 mL syringe 0.5 ml IM ONCE Qty: 0.5 0RF (DME) blood-glucose meter Misc See Rx Instructions .ROUTE .MEDSUPPLY Qty: 1 0RF Rx Instructions: As directed to check blood glucose. No insulin. Dispense covered brand. (DME) Blood Glucose Test Strip See Rx Instructions .ROUTE .MEDSUPPLY Qty: 100 3RF Rx Instructions: As directed to check blood glucose daily. No insulin. Dispense covered brand. (DME) lancets Misc See Rx Instructions .ROUTE .MEDSUPPLY Qty: 100 3RF Rx Instructions: As directed to check blood glucose daily. No insulin. Dispense covered brand. (DME) Briefs, Adult-Extra Large Misc See Rx Instructions .ROUTE .MEDSUPPLY Qty: 10 Rx Instructions: size 3X night time use lisinopril 5 mg tablet 5 mg PO DAILY Qty: 28 12RF levothyroxine 200 mcg tablet 200 mcg PO DAILY@0730 Qty: 28 12RF atorvastatin 40 mg tablet 40 mg PO QHS Qty: 90 3RF gemfibrozil [Lopid] 600 mg tablet 600 mg PO DAILY Qty: 30 11RF metoprolol succinate 50 mg tablet extended release 24 hr 50 mg PO DAILY Qty: 90 3RF risperidone 1 mg tablet See Rx Instructions .ROUTE .COMPLEX Qty: 70 6RF Dose Instruction: TAKE 1/2 TABLET BY MOUTH EVERY MORNING AND TAKE 2 TABLETS BY MOUTH EVERY EVENING Rx Instructions: TAKE 1/2 TABLET BY MOUTH EVERY MORNING AND TAKE 2 TABLETS BY MOUTH EVERY EVENING divalproex 500 mg tablet extended release 24 hr 500 mg PO .COMPLEX Qty: 300 3RF Rx Instructions: 2 (1000mg) tablets in the morning and 3 (1500mg) tablets at bedtime. bupropion HCl 300 mg tablet extended release 24 hr 300 mg PO QAM Qty: 60 3RF Rx Instructions: per rx label [facility] 10/24/19 [facility] quetiapine [Seroquel] 100 mg tablet 100 mg PO HS Qty: 60 3RF sertraline 100 mg tablet 200 mg PO DAILY Qty: 90 3RF Rx Instructions: 10/24/19 [facility] rx label Discharge Instructions Instructions: Laceration Repair With Stitches ED, Wound Care ED Additional Instructions: Suture removal in 5 days Keep clean and dry apply bacitracin we will give you several packets here take Tylenol as needed for pain return with spreading redness fever worsening pain vomiting worsening headache Referrals: Gordon Landis DO [Primary Care Provider, Medicine] HPI General Date/Time Provider Initiated Documentation: 03/26/25 13:44. HPI Narrative: This 54-year-old male presents after tripping over an object while walking with his cat fall from standing hit his head denies loss of consciousness denies any headache denies any vision change has a laceration to his eyebrow which is why presents tetanus is up-to-date denies any history of coagulopathy or neck pain denies strength or sensation change or vomiting. The event occurred several hours prior to arrival. Related Data Home Medications ?Medication ?Instructions ?Recorded ?Confirmed sumatriptan succinate 50 mg tablet See Rx Instructions PO .COMPLEX 11/06/20 03/26/25 #14 tabs diaper,brief,adult,disposable #10 ea 03/22/21 03/26/25 (Briefs, Adult-Extra Large) blood sugar diagnostic (Blood #100 ea 05/22/22 03/26/25 Glucose Test strips) blood-glucose meter #1 ea 05/22/22 03/26/25 lancets #100 ea 05/22/22 03/26/25 levothyroxine 200 mcg tablet 200 mcg PO DAILY@0730 #28 tabs 04/11/24 03/26/25 lisinopril 5 mg tablet 5 mg PO DAILY #28 tabs 04/11/24 03/26/25 atorvastatin 40 mg tablet 40 mg PO QHS #90 tabs 11/15/24 03/26/25 gemfibrozil 600 mg tablet (Lopid) 600 mg PO DAILY #30 tabs 11/15/24 03/26/25 metoprolol succinate 50 mg 50 mg PO DAILY #90 tabs 11/15/24 03/26/25 tablet,extended release 24 hr risperidone 1 mg tablet See Rx Instructions .Route 01/24/25 03/26/25 .COMPLEX #70 tabs bupropion HCl 300 mg 24 hr tablet, 300 mg PO QAM #60 tabs 02/21/25 03/26/25 extended release divalproex 500 mg tablet,extended 500 mg PO .COMPLEX #300 tabs 02/21/25 03/26/25 release 24 hr quetiapine 100 mg tablet (Seroquel) 100 mg PO HS #60 tabs 02/21/25 03/26/25 sertraline 100 mg tablet 200 mg (2 x 100 mg) PO DAILY #90 03/21/25 03/26/25 tabs Previous Rx's ?Medication ?Instructions ?Recorded sumatriptan succinate 50 mg tablet See Rx Instructions PO .COMPLEX 11/06/20 #14 tabs blood sugar diagnostic (Blood #100 ea 05/22/22 Glucose Test strips) blood-glucose meter #1 ea 05/22/22 lancets #100 ea 05/22/22 levothyroxine 200 mcg tablet 200 mcg PO DAILY@0730 #28 tabs 04/11/24 lisinopril 5 mg tablet 5 mg PO DAILY #28 tabs 04/11/24 atorvastatin 40 mg tablet 40 mg PO QHS #90 tabs 11/15/24 gemfibrozil 600 mg tablet (Lopid) 600 mg PO DAILY #30 tabs 11/15/24 metoprolol succinate 50 mg 50 mg PO DAILY #90 tabs 11/15/24 tablet,extended release 24 hr risperidone 1 mg tablet See Rx Instructions .Route 01/24/25 .COMPLEX #70 tabs bupropion HCl 300 mg 24 hr tablet, 300 mg PO QAM #60 tabs 02/21/25 extended release divalproex 500 mg tablet,extended 500 mg PO .COMPLEX #300 tabs 02/21/25 release 24 hr quetiapine 100 mg tablet (Seroquel) 100 mg PO HS #60 tabs 02/21/25 sertraline 100 mg tablet 200 mg (2 x 100 mg) PO DAILY #90 03/21/25 tabs Allergies Allergy/AdvReac Type Severity Reaction Status Date / Time No Known Allergies Allergy Verified 03/26/25 13:44 General Stated Complaint: Laceration SHANIKA: 3 Exam Narrative Exam Narrative: Alert and oriented 54-year-old male in no acute distress I have a laceration vertically approximately half a centimeter pupil equal round reactive to light and accommodation ambulatory with steady gait GCS 15 no cervical spine tenderness no visible sign of additional trauma some abrasions noted to the left lower periorbital region no proptosis Course Vital Signs Vital signs: Vital Signs Temperature 36.5 C 03/26/25 13:41 Pulse 103 H 03/26/25 13:41 Respiratory Rate 16 03/26/25 13:41 Blood Pressure 154/102 H 03/26/25 13:41 Pulse Oximetry 95 03/26/25 13:41 Temperature 36.5 C 03/26/25 13:41 Temperature Source Temporal Artery Scan 03/26/25 13:41 Pulse 103 H 03/26/25 13:41 Respiratory Rate 16 03/26/25 13:41 Blood Pressure 154/102 H 03/26/25 13:41 Blood Pressure Position Sitting 03/26/25 13:41 Pulse Oximetry 95 03/26/25 13:41 Oxygen Delivery Method Room Air 03/26/25 13:41 Oxygen Flow Rate 0 03/26/25 13:41 Procedure Laceration Laceration 1: Date of Procedure: 03/26/25 Time of procedure: 15:59 Provider that performed the procedure: Roseanne Murguia Standard Time Out Performed: Yes Patient Consented: Verbally Side (If applicable): left Description: linear Medical Decision Making 53-year-old male presenting after mechanical fall injury to left eyebrow 2 sutures were placed with 5-0 Prolene sutures removed in 5 days tolerated procedure without incident GCS 15 ambulatory with steady gait stable for discharge home at this time no cervical spine tenderness wound precautions reviewed in detail and patient expressed understanding no indication for CT imaging no dizziness no vomiting no headache no bony step-offs low suspicion for facial fracture clinically no anticoagulation discharged home stable condition with stable vitals tetanus up-to-date Quality:SDOH Health Related Social Needs: Health related social needs details Noted PFSH All Active Problems (Updated 03/26/25 @ 14:34 by JUAN C Beach) Eyebrow laceration (Acute) Facial injury (Acute) Plaque psoriasis (Acute) Tubulovillous adenoma of colon (Acute) Colon polyp (Acute) 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) Obstructive sleep apnea (Chronic ~04/2011) unable to tolerate CPAP Bipolar 1 disorder (Chronic) Post traumatic stress disorder (PTSD) (Chronic) CHF (congestive heart failure) (Chronic) CKD (chronic kidney disease) (Acute) Diabetes mellitus, type II (Chronic) Fasting BS in the 150s, 2020- Positive colorectal cancer screening using DNA-based stool test (Acute) Medical History Anemia Anxiety Basal cell carcinoma right upper medial cheek Cardiomyopathy Depression Discharge planning issues Folate deficiency Gout History of hand fracture right Hx of non-ST elevation myocardial infarction (NSTEMI) 11/2014 Hyperlipidemia Hypertension Hypertriglyceridemia Hypothyroidism Iron deficiency Migraine with aura Manuel syndrome Pt. denies Onychogryposis Osteomyelitis of toe amputated right 2nd toe thru pox phalanx 02/03/18 Urethral stricture Urinary incontinence Surgical History Amputated toe of right foot (02/03/18) osteomyelitis, Dr. Pena History of colonoscopy (~04/2022) S/P Mohs surgery for basal cell carcinoma (09/18/20) Two stages w/ full thickness Graft and Flap Social History (Updated 11/23/23 @ 11:57 by Jennifer Hicks [facility]) Smoking/Tobacco Use Status: Current every day Smokeless tobacco user: chewing tobacco Quit status: not considering quitting (I'm gonna take my time) Smoking risk assessment performed?: Yes Alcohol Intake: never Drug use: Rarely Substance use type: marijuana Adopted: No Caregiver/Support person: No Foster care: No Household members: other Details: Sister and [id number] Housing: house Number of Children: 0 number of grandchildren: 0 Communication Needs: None Education Level: middle school Details: dropped out of high school (9th grade) at 17 Do you need help understanding health information?: Often current occupation: disability Pets and animals: Yes (3 dogs/2 cats ) Pets and animals: cat(s) and dog(s) Sexually active: No Do you think of yourself as: straight/heterosexual Current gender identity: male How often do you talk on the phone with friends or family?: three or more times per week How often do you get together with friends or relatives?: three or more times per week Do you belong to any clubs or organized social groups?: no Panel score (0-1 are the most socially isolated patients): 1 What type of physical activity do you participate in: walking Duration: other Details: Walks 2x a day - 3 miles am and 3 miles pm Frequency: daily Elena/Evangelical: None Special elena needs: No Seatbelt use: always Drive 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
== END 2025-03-26 14:46 | disposition home or self-care (01) ==
PROVIDERS: Emergency Provider Physician Assistant; PCP Family Medicine
DX: S01.112A Laceration without foreign body of left eyelid and periocular area, initial encounter (principal); E11.22 Type 2 diabetes mellitus with diabetic chronic kidney disease; I13.0 Hypertensive heart and chronic kidney disease with heart failure and stage 1 through stage 4 chronic kidney disease, or unspecified chronic kidney disease; N18.9 Chronic kidney disease, unspecified; I50.9 Heart failure, unspecified; E78.5 Hyperlipidemia, unspecified; I25.2 Old myocardial infarction; E03.9 Hypothyroidism, unspecified; Z79.899 Other long term (current) drug therapy; F17.220 Nicotine dependence, chewing tobacco, uncomplicated; W01.0XXA Fall on same level from slipping, tripping and stumbling without subsequent striking against object, initial encounter; Y93.K1 Activity, walking an animal; Y92.89 Other specified places as the place of occurrence of the external cause
CPT/HCPCS: 99283

== ENCOUNTER 2025-03-31 08:46 | Emergency (ER) | payer MEDICAID, SELFPAY ==
[2025-03-31 08:50] VITALS: BP 177/125; PULSE 70; RESP 18; TEMP 36.5; O2SAT 97
--- NOTE | 2025-03-31 08:50 | W.ED.GENAD ---
Discharge Plan Disposition Patient Disposition: Home Condition: Stable Discharge Details Clinical Impression: Visit for suture removal Primary Care Provider: Gordon Landis ED Provider: Bill Blue Home Meds and New Rx's Prescriptions: Continued sumatriptan succinate 50 mg tablet See Rx Instructions PO .COMPLEX Qty: 14 6RF Rx Instructions: take 1 tab at onset of headache; if no relief may repeat 1 tab after at least 2 hrs; max = 4 tabs/24 hr PO flu vacc [id number] 6mos up(PF) 60 mcg (15 mcg x 4)/0.5 mL syringe 0.5 ml IM ONCE Qty: 0.5 0RF (DME) blood-glucose meter Misc See Rx Instructions .ROUTE .MEDSUPPLY Qty: 1 0RF Rx Instructions: As directed to check blood glucose. No insulin. Dispense covered brand. (DME) Blood Glucose Test Strip See Rx Instructions .ROUTE .MEDSUPPLY Qty: 100 3RF Rx Instructions: As directed to check blood glucose daily. No insulin. Dispense covered brand. (DME) lancets Misc See Rx Instructions .ROUTE .MEDSUPPLY Qty: 100 3RF Rx Instructions: As directed to check blood glucose daily. No insulin. Dispense covered brand. (DME) Briefs, Adult-Extra Large Misc See Rx Instructions .ROUTE .MEDSUPPLY Qty: 10 Rx Instructions: size 3X night time use lisinopril 5 mg tablet 5 mg PO DAILY Qty: 28 12RF levothyroxine 200 mcg tablet 200 mcg PO DAILY@0730 Qty: 28 12RF atorvastatin 40 mg tablet 40 mg PO QHS Qty: 90 3RF gemfibrozil [Lopid] 600 mg tablet 600 mg PO DAILY Qty: 30 11RF metoprolol succinate 50 mg tablet extended release 24 hr 50 mg PO DAILY Qty: 90 3RF risperidone 1 mg tablet See Rx Instructions .ROUTE .COMPLEX Qty: 70 6RF Dose Instruction: TAKE 1/2 TABLET BY MOUTH EVERY MORNING AND TAKE 2 TABLETS BY MOUTH EVERY EVENING Rx Instructions: TAKE 1/2 TABLET BY MOUTH EVERY MORNING AND TAKE 2 TABLETS BY MOUTH EVERY EVENING divalproex 500 mg tablet extended release 24 hr 500 mg PO .COMPLEX Qty: 300 3RF Rx Instructions: 2 (1000mg) tablets in the morning and 3 (1500mg) tablets at bedtime. bupropion HCl 300 mg tablet extended release 24 hr 300 mg PO QAM Qty: 60 3RF Rx Instructions: per rx label [place] [facility] [place]Seroquel[place] 100 mg tablet 100 mg PO HS Qty: 60 3RF sertraline 100 mg tablet 200 mg PO DAILY Qty: 90 3RF Rx Instructions: 10/24/19 [facility] rx label Discharge Instructions Additional Instructions: You can clean the area with gentle scrubbing with soap and water. Return to the emergency department if you have new symptoms such as spreading redness from the wound or yellow-white discharge HPI General Mode of arrival: ambulatory. Date/Time Provider Initiated Documentation: 03/31/25 08:47. Limitations to Documentation: no limitations. Information obtained by: patient. History of Present Illness 54 year old M presents to the emergency department with the chief complaint of suture removal, described as mild, Patient started experiencing this day(s) (5) and it has been constant. No relieving factors improve symptom(s), No exacerbating factors reported . Patient notes no other symptoms.. Patient did receive the following treatments prior to arrival, none Related Data Home Medications ?Medication ?Instructions ?Recorded ?Confirmed sumatriptan succinate 50 mg tablet See Rx Instructions PO .COMPLEX 11/06/20 03/31/25 #14 tabs diaper,brief,adult,disposable #10 ea 03/22/21 03/31/25 (Briefs, Adult-Extra Large) blood sugar diagnostic (Blood #100 ea 05/22/22 03/31/25 Glucose Test strips) blood-glucose meter #1 ea 05/22/22 03/31/25 lancets #100 ea 05/22/22 03/31/25 levothyroxine 200 mcg tablet 200 mcg PO DAILY@0730 #28 tabs 04/11/24 03/31/25 lisinopril 5 mg tablet 5 mg PO DAILY #28 tabs 04/11/24 03/31/25 atorvastatin 40 mg tablet 40 mg PO QHS #90 tabs 11/15/24 03/31/25 gemfibrozil 600 mg tablet (Lopid) 600 mg PO DAILY #30 tabs 11/15/24 03/31/25 metoprolol succinate 50 mg 50 mg PO DAILY #90 tabs 11/15/24 03/31/25 tablet,extended release 24 hr risperidone 1 mg tablet See Rx Instructions .Route 01/24/25 03/31/25 .COMPLEX #70 tabs bupropion HCl 300 mg 24 hr tablet, 300 mg PO QAM #60 tabs 02/21/25 03/31/25 extended release divalproex 500 mg tablet,extended 500 mg PO .COMPLEX #300 tabs 02/21/25 03/31/25 release 24 hr quetiapine 100 mg tablet (Seroquel) 100 mg PO HS #60 tabs 02/21/25 03/31/25 sertraline 100 mg tablet 200 mg (2 x 100 mg) PO DAILY #90 03/21/25 03/31/25 tabs Previous Rx's ?Medication ?Instructions ?Recorded sumatriptan succinate 50 mg tablet See Rx Instructions PO .COMPLEX 11/06/20 #14 tabs blood sugar diagnostic (Blood #100 ea 05/22/22 Glucose Test strips) blood-glucose meter #1 ea 05/22/22 lancets #100 ea 05/22/22 levothyroxine 200 mcg tablet 200 mcg PO DAILY@0730 #28 tabs 04/11/24 lisinopril 5 mg tablet 5 mg PO DAILY #28 tabs 04/11/24 atorvastatin 40 mg tablet 40 mg PO QHS #90 tabs 11/15/24 gemfibrozil 600 mg tablet (Lopid) 600 mg PO DAILY #30 tabs 11/15/24 metoprolol succinate 50 mg 50 mg PO DAILY #90 tabs 11/15/24 tablet,extended release 24 hr risperidone 1 mg tablet See Rx Instructions .Route 01/24/25 .COMPLEX #70 tabs bupropion HCl 300 mg 24 hr tablet, 300 mg PO QAM #60 tabs 02/21/25 extended release divalproex 500 mg tablet,extended 500 mg PO .COMPLEX #300 tabs 02/21/25 release 24 hr quetiapine 100 mg tablet (Seroquel) 100 mg PO HS #60 tabs 02/21/25 sertraline 100 mg tablet 200 mg (2 x 100 mg) PO DAILY #90 03/21/25 tabs Allergies Allergy/AdvReac Type Severity Reaction Status Date / Time No Known Allergies Allergy Verified 03/31/25 08:53 General SHANIKA: 3 Review of Systems All systems reviewed & are unremarkable except as noted in HPI and below Constitutional Constitutional: Denies chills, Denies fever(s) and Denies weakness Gastrointestinal Gastrointestinal: Denies vomiting Neurologic Neurologic: Denies weakness Psychiatric Psychiatric: Denies depression Exam Const General: no acute distress Orientation: alert HENMT Ears: external ears normal General nose exam: external nose normal Mouth: moist mucous membranes Eyes General: appearance normal, both eyes and all related structures Neck Neck: normal visual inspection Resp Effort & Inspection: normal respiratory effort and able to speak in complete sentences Cardio Rate: regular rate Skin General skin exam: no rashes or lesions noted Neuro General: patient alert and patient oriented x3 Extrem General: normal to inspection Psych Mental Status: mental status grossly normal Medical Decision Making 54-year-old male comes in with suture removal request. He had stitches placed on his left eyebrow 5 days ago after a fall. He says he feels well and has no complaints currently. He has a well-healed small and wound on the left medial eyebrow. There is no signs of infection. I removed the 2 sutures without complications. He is stable for discharge and will return if any signs of infection. 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) Obstructive sleep apnea (Chronic ~04/2011) unable to tolerate CPAP Bipolar 1 disorder (Chronic) Post traumatic stress disorder (PTSD) (Chronic) CHF (congestive heart failure) (Chronic) CKD (chronic kidney disease) (Acute) Diabetes mellitus, type II (Chronic) Fasting BS in the 150s, 2020- Positive colorectal cancer screening using DNA-based stool test (Acute) Medical History Anemia Anxiety Basal cell carcinoma right upper medial cheek Cardiomyopathy Depression Discharge planning issues Folate deficiency Gout History of hand fracture right Hx of non-ST elevation myocardial infarction (NSTEMI) 11/2014 Hyperlipidemia Hypertension Hypertriglyceridemia Hypothyroidism Iron deficiency Migraine with aura Manuel syndrome Pt. denies Onychogryposis Osteomyelitis of toe amputated right 2nd toe thru pox phalanx 02/03/18 Urethral stricture Urinary incontinence Surgical History Amputated toe of right foot (02/03/18) osteomyelitis, Dr. Pena History of colonoscopy (~04/2022) S/P Mohs surgery for basal cell carcinoma (09/18/20) Two stages w/ full thickness Graft and Flap Social History (Updated 11/23/23 @ 11:57 by Jennifer Hicks CMA) Smoking/Tobacco Use Status: Current every day Smokeless tobacco user: chewing tobacco Quit status: not considering quitting (I'm gonna take my time) Smoking risk assessment performed?: Yes Alcohol Intake: never Drug use: Rarely Substance use type: marijuana Adopted: No Caregiver/Support person: No Foster care: No Household members: other Details: Sister and [id number] Housing: house Number of Children: 0 number of grandchildren: 0 Communication Needs: None Education Level: middle school Details: dropped out of high school (9th grade) at 17 Do you need help understanding health information?: Often current occupation: disability Pets and animals: Yes (3 dogs/2 cats ) Pets and animals: cat(s) and dog(s) Sexually active: No Do you think of yourself as: straight/heterosexual Current gender identity: male How often do you talk on the phone with friends or family?: three or more times per week How often do you get together with friends or relatives?: three or more times per week Do you belong to any clubs or organized social groups?: no Panel score (0-1 are the most socially isolated patients): 1 What type of physical activity do you participate in: walking Duration: other Details: Walks 2x a day - 3 miles am and 3 miles pm Frequency: daily Elena/Christianity: None Special elena needs: No Seatbelt use: always Drive intox or ride w/intox 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
== END 2025-03-31 09:03 | disposition home or self-care (01) ==
PROVIDERS: Emergency Provider Emergency Medicine; PCP Family Medicine
DX: Z48.02 Encounter for removal of sutures (principal)